=== PATIENT | male | born 1960 | race African-American/Black ===

== ENCOUNTER 2016-11-25 08:53 | Emergency (ER) | payer MEDICAID ==
[~2016-11-25] VITALS: Ht 167.6 cm; Wt 83.9 kg
[~2016-11-25 08:53] MED LIST: CLONIDINE0.1 MG PO; CYCLOBENZAPRINE10 MG ORAL; LOPRESSOR HCT1 EAC3 ORAL; NORCO 5-325 TA1 EACH ORAL; NORVASC10 MG ORAL
[2016-11-25 09:06] VITALS: BP 178/105
[2016-11-25] MEDS ORDERED: Phenylephrine 10mg/ml 5ml vial IV ONE (09:07)
[2016-11-25] MEDS ORDERED: Oxymetazoline 0.05% Na Spray 30ml NASAL ONE (09:08)
--- NOTE | 2016-11-25 09:26 | Emergency Room Report ---
History of Present Illness General Chief Complaint: Nosebleed Source: Patient Present Illness HPI Patient is a 56-year-old male who presented after having increased bleeding from the right nostril. The patient had gradual intermittent bleeding over the past 2 days. Bleeding had worsened this morning. The patient prior history of hypertension for which he takes clonidine and amlodipine. He denies prior renal disease. He denies taking anticoagulants. He does take ibuprofen. He denied prior history of nosebleeds.He denies feeling dizzy or lightheaded Allergies: Coded Allergies: No Known Allergies (Unverified , 02/01/14) Patient History Past Medical History: see triage record, HTN Past Surgical History: other - back Reviewed Nursing Documentation: PMH: Agreed, PSxH: Agreed Nursing Documentation-PMH Past Medical History: No History, Except For Hx Hypertension: Yes Review of Systems All Other Systems: negative except mentioned in HPI Physical Exam Vital Signs Date Time Temp Pulse Resp B/P Pulse Ox O2 Delivery O2 Flow Rate FiO2 11/25/16 08:57 97.7 66 17 178/105 98 Room Air General Appearance: well appearing, no apparent distress, alert, GCS 15, non- toxic Head: normocephalic, atraumatic ENT: hearing grossly normal, normal voice, other - large amount of bleeding from right nare, unable to visualize source Neck: full range of motion, supple Respiratory: no respiratory distress, speaking full sentences Musculoskeletal: no calf tenderness Neurologic: normal gait Psychiatric: mood/affect normal Skin: no rash Procedures Additional Procedure Procedure Narrative The right nare was sprayed with Afrin. An anterior posterior nasal pack was placed. Patient tolerated well Medical Decision Making Diagnostic Impression: Primary Impression: Epistaxis ER Course Patient presented for nosebleed. Differential diagnosis included was not limited to anterior epistaxis, posterior epistaxis, coagulopathy, anemia among others. Because of complexity of patient's case laboratory studies were ordered.Lab for studies showed normal hemoglobin. Coagulation studies were normal. Anterior posterior pack was placed. Balloon was inflated with air. The patient had improvement in his blood pressure.The patient was given clonidine.The patient's balloon was adjusted after a small amount recurrent bleeding. The patient had a complete resolution of nasal bleeding . He is advised to have packing removed in one to 2 days. Is advised to return if he began having increased dizziness worsening bleeding or other concerns. Labs Test 11/25/16 09:35 White Blood Count 11.4 K/UL (4.8-10.8) Red Blood Count 4.68 M/UL (4.70-6.10) Hemoglobin 13.9 G/DL (14.2-18.0) Hematocrit 41.4 % (42.0-52.0) Mean Corpuscular Volume 88 FL (80-99) Mean Corpuscular Hemoglobin 29.6 PG (27.0-31.0) Mean Corpuscular Hemoglobin Concent 33.6 G/DL (32.0-36.0) Red Cell Distribution Width 12.4 % (11.6-14.8) Platelet Count 315 K/UL (150-450) Mean Platelet Volume 6.4 FL (6.5-10.1) Neutrophils (%) (Auto) 79.8 % (45.0-75.0) Lymphocytes (%) (Auto) 10.2 % (20.0-45.0) Monocytes (%) (Auto) 6.6 % (1.0-10.0) Eosinophils (%) (Auto) 2.5 % (0.0-3.0) Basophils (%) (Auto) 0.9 % (0.0-2.0) Chest X-Ray Diagnostic Results Chest X-Ray Ordered: No Last Vital Signs Date Time Temp Pulse Resp B/P Pulse Ox O2 Delivery O2 Flow Rate FiO2 11/25/16 08:57 97.7 66 17 178/105 98 Room Air Status: improved Disposition: HOME, SELF-CARE Condition: Stable Scripts Amoxicillin* (AMOXIL*) 500 Mg Capsule 500 MG ORAL THREE TIMES A DAY, #21 CAP Prov: Jose Barney 11/25/16 Jose Barney Nov 25, 2016 09:26
[2016-11-25 09:51] VITALS: BP 176/97
[2016-11-25 09:54] LABS: BASOPHILS % (AUTO) 0.9 % (0.0-2.0); EOSINOPHILS % (AUTO) 2.5 % (0.0-3.0); LYMPHOCYTES % (AUTO) 10.2 % (20.0-45.0); MEAN CORPUSCULAR HEMOGLOBIN 29.6 PG (27.0-31.0); MEAN CORPUSCULAR HGB CONC 33.6 G/DL (32.0-36.0); MEAN CORPUSCULAR VOLUME 88 FL (80-99); MEAN PLATELET VOLUME 6.4 FL (6.5-10.1); MONOCYTES % (AUTO) 6.6 % (1.0-10.0); NEUTROPHILS % (AUTO) 79.8 % (45.0-75.0); PLATELET COUNT 315 K/UL (150-450); RED BLOOD COUNT 4.68 M/UL (4.70-6.10); RED CELL DISTRIBUTION WIDTH 12.4 % (11.6-14.8); WHITE BLOOD COUNT 11.4 K/UL (4.8-10.8)
[2016-11-25 10:22] LABS: INR 0.9 (0.9-1.1); PROTHROMBIN TIME 9.9 SEC (9.30-11.50)
[2016-11-25 10:26] LABS: ALANINE AMINOTRANSFERASE 16 U/L (3-41); ALBUMIN/GLOBULIN RATIO 1.4 (1.0-2.7); ANION GAP 16 (5-15); ASPARTATE AMINO TRANSFERASE 17 U/L (5-40); CALCIUM 9.2 mg/dL (8.6-10.2); CARBON DIOXIDE 25 mEQ/L (20-30); CHLORIDE 96 mEQ/L (98-107); GLOMERULAR FILTRATION RATE > 60 mL/min (>60); HEMOLYSIS 2; POTASSIUM 3.9 mEQ/L (3.4-4.9); SODIUM 137 mEQ/L (135-145); TOTAL PROTEIN 7.5 g/dL (6.6-8.7)
[2016-11-25] MEDS ORDERED: AMOXICILLIN500 MG ORAL (10:29)
[2016-11-25 10:30] VITALS: BP 169/90
[2016-11-25 11:17] VITALS: BP 178/96
== END 2016-11-25 11:17 | disposition home or self-care (01) ==
LOC: EMR 09:30
DX: R04.0 Epistaxis (principal); I10 Essential (primary) hypertension
CPT/HCPCS: 36415; 80053; 85025; 85610; 85730; 99283; J2370

== ENCOUNTER 2016-11-26 12:19 | Emergency (ER) | payer MEDICAID ==
[~2016-11-26] VITALS: Ht 167.6 cm; Wt 83.9 kg
[~2016-11-26 12:19] MED LIST changes: +AMOXICILLIN500 MG ORAL
[2016-11-26 12:29] VITALS: BP 174/108
[2016-11-26 13:13] VITALS: BP 164/88
[2016-11-26 13:31] VITALS: BP 164/88
--- NOTE | 2016-11-26 15:18 | Emergency Room Report ---
History of Present Illness General Chief Complaint: Nosebleed Source: Patient Present Illness HPI The patient is a 56-year-old male with a history of hypertension presenting for epistaxis. The patient was seen in this emergency Department yesterday for a nosebleed. A Rhino Rocket was placed in the right nostril and bleeding was controlled. He was placed on amoxicillin and has been taking it as prescribed. He states that he was unable to sleep last night and wants this removed. He denies any bleeding since it was placed. He denies any pain. He denies any other symptoms including nausea, vomiting, fever, chills, sore throat, cough Allergies: Coded Allergies: No Known Allergies (Unverified , 02/01/14) Patient History Past Medical History: see triage record Pertinent Family History: none Reviewed Nursing Documentation: PMH: Agreed, PSxH: Agreed Nursing Documentation-PMH Hx Hypertension: Yes Review of Systems All Other Systems: negative except mentioned in HPI Physical Exam Vital Signs Date Time Temp Pulse Resp B/P Pulse Ox O2 Delivery O2 Flow Rate FiO2 11/26/16 12:23 97.5 83 15 174/108 98 Room Air Sp02 EP Interpretation: reviewed, normal General Appearance: no apparent distress, alert, GCS 15, non-toxic Head: normocephalic, atraumatic Eyes: bilateral eye PERRL, bilateral eye normal inspection ENT: hearing grossly normal, normal pharynx, no angioedema, normal voice, uvula midline, other - R nostril Rhino Rocket in place. No bleeding Neck: full range of motion, supple/symm/no masses Musculoskeletal: back normal, gait/station normal, normal range of motion, non- tender Neurologic: alert, oriented x3, responsive, motor strength/tone normal, sensory intact, speech normal Psychiatric: judgement/insight normal, memory normal, mood/affect normal, no suicidal/homicidal ideation Skin: normal color, no rash, warm/dry, well hydrated Lymphatic: no adenopathy Medical Decision Making PA Attestation Dr. Mccullough is my supervising physician. Patient management was discussed with my supervising physician Diagnostic Impression: Primary Impression: Epistaxis ER Course The patient is a 56-year-old male presenting for Rhino Rocket removal Differential diagnoses considered but not limited to: Epistaxis, septohematoma, rhinitis, infection Physical exam: The patient is hypertensive. Afebrile HEENT: Rhino Rocket in place right nostril. No active bleeding. Oropharynx is patent. No blood The patient is given clonidine and blood pressure has reduced The Rhino Rocket was removed without any complications. No bleeding. Upon inspection, no septal hematoma. There is dried blood. The patient will be discharged home and will continue to use amoxicillin as prescribed. He will not blow his nose for the next 2-3 days. He is to followup with PMD and discussed blood pressure management ER precautions given. Last Vital Signs Date Time Temp Pulse Resp B/P Pulse Ox O2 Delivery O2 Flow Rate FiO2 11/26/16 13:31 97.5 88 15 164/88 98 Room Air Status: improved Disposition: HOME, SELF-CARE Condition: Improved Referrals: [facility],REFERRING (PCP) Patient Instructions: Nosebleed, [id number] Additional Instructions: I discussed my findings with the patient. All questions and concerns have been answered. Treatment and medication compliance have been addressed. I advised the patient that they need to follow up with PMD in 3-5 days. Return to ED if symptoms worsen, new symptoms arise, or if needed for any reason. Patient verbalized understanding of discharge instructions. SHIRA ANAND Nov 26, 2016 15:17
== END 2016-11-26 13:31 | disposition home or self-care (01) ==
LOC: EMR 12:48
DX: R04.0 Epistaxis (principal); I10 Essential (primary) hypertension
CPT/HCPCS: 99281

== ENCOUNTER 2017-09-13 10:43 | Emergency (ER) | payer MEDICAID, OTHER ==
[~2017-09-13] VITALS: Ht 167.6 cm; Wt 78.9 kg
[2017-09-13 10:59] VITALS: BP 159/86
[2017-09-13] MEDS ORDERED: Norco 5mg/325mg tab ORAL ONE (11:45)
[2017-09-13] MEDS ORDERED: Ketorolac 60mg Inj IM ONE (11:45)
[2017-09-13] MEDS ORDERED: Cyclobenzaprine 10mg Tab ORAL ONE (12:00)
[2017-09-13] MEDS ORDERED: CYCLOBENZAPRINE10 MG ORAL (12:33)
[2017-09-13] MEDS ORDERED: IBUPROFEN600 M1 PO (12:34)
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
--- NOTE | 2017-09-13 12:56 | Diagnostic Imaging Report ---
Indication: Chest pain Technique: XRAY Chest 2v Comparison: None Findings: Heart size and mediastinal contours are within normal limits. There is no focal airspace consolidation, pleural effusion or pneumothorax. No acute osseous abnormality is seen. Some degenerative changes are noted in the thoracic spine. Impression: No radiographic evidence of acute cardiopulmonary disease.
--- NOTE | 2017-09-13 12:58 | Diagnostic Imaging Report ---
Indication: Pain Technique: XRAY Pelvis 1v Comparison: None Findings: There is no evidence of acute fracture or dislocation. Mild degenerative changes of the hips with subchondral sclerosis. Sacroiliac joints and symphysis pubis preserved. Degenerative changes of the lower lumbar spine partially visualized. Bowel gas pattern is unremarkable. Impression: No evidence of acute fracture or dislocation.
[2017-09-13 13:00] VITALS: BP 142/75
== END 2017-09-13 13:00 | disposition home or self-care (01) ==
LOC: EMR 12:29
DX: M54.6 Pain in thoracic spine (principal); M25.552 Pain in left hip; M25.551 Pain in right hip; V43.52XA Car driver injured in collision with other type car in traffic accident, initial encounter; Y92.410 Unspecified street and highway as the place of occurrence of the external cause; I10 Essential (primary) hypertension
CPT/HCPCS: 71046; 72170; 96372; 99284

== ENCOUNTER 2019-01-16 15:01 | Emergency (ER) | payer OTHER ==
[~2019-01-16] VITALS: Ht 170.2 cm; Wt 80.3 kg
[~2019-01-16 15:01] MED LIST changes: +IBUPROFEN600 M1 PO
[2019-01-16 15:10] VITALS: BP 187/105
--- NOTE | 2019-01-16 15:10 | NUR ---
ED Nurse Note: Patient ambulated to ER from home c/o Rt upper head laceration after falling last night. Patient refused to verbalize the details. Patient is alert and oriented x4 and ambulatory. skin clean and intact. calm and cooperative. no acute distress noted at this time.
[2019-01-16] MEDS ORDERED: NEURONTIN800 MG ORAL (15:15)
[2019-01-16] MEDS ORDERED: EMLA 5gm tube TOPIC ONE (15:30)
--- NOTE | 2019-01-16 15:45 | NUR ---
ED Nurse Note: [place] applied on Rt upper head laceration by ERMD at the bedside.
--- NOTE | 2019-01-16 15:49 | Emergency Room Report ---
History of Present Illness General Chief Complaint: Head Injury Source: Patient Present Illness HPI 58-year-old male presents with trip and fall, laceration to the back of the head , patient states he was climbing up steps yesterday, and he slipped, no LOC, hit the back of his head he denies any nausea vomiting chest pain shortness of breath, no proceeding symptoms, patient states he just wants his laceration repaired, he does not want a CT he does not want a Tdap. He describes the pain as sharp, no aggravating relieving factors severity is mild location laceration of head back right. Allergies: Coded Allergies: No Known Allergies (Unverified , 02/01/14) Patient History Past Medical History: see triage record Reviewed Nursing Documentation: PMH: Agreed; PSxH: Agreed Nursing Documentation-PMH Past Medical History: No History, Except For Hx Hypertension: Yes Review of Systems All Other Systems: negative except mentioned in HPI Physical Exam Vital Signs Date Time Temp Pulse Resp B/P (MAP) Pulse Ox O2 Delivery O2 Flow Rate FiO2 01/16/19 15:08 98.1 18 187/105 (132) 97 Room Air Sp02 EP Interpretation: reviewed, normal General Appearance: well appearing, no apparent distress, alert Head: normocephalic, other - 5 cm laceration right occiput Eyes: bilateral eye PERRL, bilateral eye EOMI ENT: uvula midline, moist mucus membranes Neck: supple, thyroid normal, supple/symm/no masses Respiratory: lungs clear, no respiratory distress, no retraction, no accessory muscle use Cardiovascular #1: normal peripheral pulses, regular rate, rhythm, no edema, no gallop, no murmur Gastrointestinal: non tender, soft, no guarding, no rebound Musculoskeletal: normal inspection Neurologic: alert, oriented x3 Psychiatric: mood/affect normal Skin: no rash, warm/dry Procedures Laceration/Wound Repair Laceration/Wound Repair : Consent: Verbal Wound Location: head Wound's Depth, Shape: superficial Wound Length (cm): 5 Wound Explored: clean Irrigated w/ Saline (ccs): 100 Betadine Prep?: Yes Anesthesia: other - LET Wound Repaired With: cristine Number of Sutures: 4 Layer Closure?: No Patient Tolerated: Well Complications: None Medical Decision Making Diagnostic Impression: Primary Impression: Acute head injury Additional Impression: Occipital scalp laceration ER Course 58-year-old male presents with laceration to the posterior scalp, it was closed , wound was clean dry and intact,Follow-up in 10 days for suture removal Last Vital Signs Date Time Temp Pulse Resp B/P (MAP) Pulse Ox O2 Delivery O2 Flow Rate FiO2 01/16/19 15:08 98.1 18 187/105 (132) 97 Room Air Disposition: HOME, SELF-CARE Condition: Stable Referrals: [facility]. [facility] Patient Instructions: Laceration Care, Adult, [id number] Additional Instructions: The patient was provided with discharge instructions, notified to follow-up with a primary care doctor and or specialist in the next 24-48 hours, and to return to the ED if they have worsening of their symptoms. Please note that this report is being documented using [employer]Mess[employer] technology. This can lead to erroneous entry secondary to incorrect interpretation by the dictating instrument. PLEASE HAVE CRISTINE REMOVED IN 10 DAYS 01/26/2019 Robert Wilkinson MD Jan 16, 2019 15:49
[2019-01-16 16:00] VITALS: BP 170/95
--- NOTE | 2019-01-16 16:00 | NUR ---
ER DISCHARGE NOTE: Patient is cleared to be discharged per ERMD after cristine applied, pt is aox4, on room air, with stable vital signs. pt was given dc instructions, pt was able to verbalize understanding including coming back in 10 days, pt id band removed. pt is able to ambulate with steady gait. pt took all belongings.
== END 2019-01-16 16:00 | disposition home or self-care (01) ==
LOC: EMR 15:55
DX: S01.01XA Laceration without foreign body of scalp, initial encounter (principal); W10.9XXA Fall (on) (from) unspecified stairs and steps, initial encounter; Y92.89 Other specified places as the place of occurrence of the external cause
CPT/HCPCS: 12002; 99282; Z7502

== ENCOUNTER 2019-02-01 10:50 | Emergency (ER) | payer OTHER ==
[~2019-02-01] VITALS: Ht 170.2 cm; Wt 81.6 kg
[~2019-02-01 10:50] MED LIST changes: +NEURONTIN800 MG ORAL
[2019-02-01] MEDS ORDERED: AMLODIPINE BES2.5 MG ORAL (10:57)
[2019-02-01 11:04] VITALS: BP 176/97
--- NOTE | 2019-02-01 11:04 | NUR ---
ED Nurse Note: pt walked in due to staple removal on the right parietal area. pt denies pain. will continue to monitor.
[2019-02-01 11:23] VITALS: BP 150/80
--- NOTE | 2019-02-01 11:23 | NUR ---
ER DISCHARGE NOTE: Patient is cleared to be discharged per ERMD, pt is aox4, on room air, with stable vital signs. pt was given dc and prescription instructions, pt was able to verbalize understanding, pt id band removed without complications. pt is able to ambulate with steady gait. pt took all belongings.
--- NOTE | 2019-02-01 13:24 | Emergency Room Report ---
History of Present Illness General Chief Complaint: Wound Recheck/Suture Removal Source: Patient Present Illness [facility] Patient presents for evaluation of cristine that were in place on the right side of his scalp Initially reports that the injury was about 10 days ago however on review of medical records it appears that January 16 Is when he was here for the cristine He reports that the area has been healing well denies any headache denies any discharge denies any redness Allergies: Coded Allergies: No Known Allergies (Unverified , 02/01/14) Patient History Past Medical History: see triage record Reviewed Nursing Documentation: PMH: Agreed; PSxH: Agreed Nursing Documentation-PMH Past Medical History: No History, Except For Hx Cardiac Problems: No - Glaucoma Hx Hypertension: Yes Review of Systems All Other Systems: negative except mentioned in HPI Physical Exam Vital Signs Date Time Temp Pulse Resp B/P (MAP) Pulse Ox O2 Delivery O2 Flow Rate FiO2 02/01/19 10:52 97.3 56 17 176/97 (123) 96 Room Air Sp02 EP Interpretation: reviewed, normal General Appearance: well appearing, no apparent distress Head: normocephalic, other - [address] in the right occipital region Eyes: bilateral eye PERRL, bilateral eye EOMI ENT: normal pharynx, no angioedema Neck: supple Respiratory: lungs clear Musculoskeletal: normal inspection Neurologic: alert, oriented x3, responsive Skin: other - [address] in the right parietal region, no obvious dehiscence no erythema Lymphatic: no adenopathy Procedures Laceration/Wound Repair Progress The area in question appears to be healing well using a staple removal apparatus in the usual fashion for cristine were removed Without any incidents patient tolerated well Area again continues to be appearing to be healing well Medical Decision Making Diagnostic Impression: Primary Impression: Encounter for wound re-check Additional Impression: staple removal ER Course Please refer to the procedural note Otherwise patient tolerated procedure well and is stable for close outpatient follow-up Last Vital Signs Date Time Temp Pulse Resp B/P (MAP) Pulse Ox O2 Delivery O2 Flow Rate FiO2 02/01/19 11:23 97.3 56 17 150/80 96 Room Air Status: improved Disposition: HOME, SELF-CARE Condition: Improved Referrals: NON PHYSICIAN (PCP) Patient Instructions: Wound Closure Removal, Wound Check Additional Instructions: Patient is provided with the discharge instructions notified to follow up with primary doctor in the next 2-3 days otherwise return to the er with any worsening symptoms. Please note that this report is being documented using DRAGON technology. This can lead to erroneous entry secondary to incorrect interpretation by the dictating instrument. Kieran Snell DO Feb 01, 2019 13:24
== END 2019-02-01 11:23 | disposition home or self-care (01) ==
LOC: EMR 11:05
DX: Z48.02 Encounter for removal of sutures (principal); I10 Essential (primary) hypertension
CPT/HCPCS: 99282